=== PATIENT | female | born 1945 | race Caucasian/White ===

== ENCOUNTER 2017-07-17 11:52 | Inpatient (IN) | payer OTHER ==
--- NOTE | 2017-07-07 10:46 | HP ---
Admitting History and Physical - Primary Care Physician PCP: Jeff Moya - Admission Chief Complaint: Left breast cancer History of Present Illness: 72 year old postmenapausal female who was not undergoing routine mammogram screening was noted to have mass central to lateral aspect of left breast with nipple changes and skin dimpling by her primary physician 05/2017. She was sent for mammogram and US 05/2017 showing irregular mass in the central to lateral aspect of left breast with nipple retraction and mass measured 5.8 cm with a separate retroareolar right 2.2 cm mass. US showed highly suspicious densities in the left breast 2:00 2.5 cm and left 3:00 5 mm. there was a smoothly marginated right 1.3 cm retroareolar mass. She underwent bilateral US core biopsies. 05/2017. 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 Bilateral breast MRI showed mutifocal left breast cancer and suspicious right axillary node. She underwent right axillary node biopsy which was negative as well as metastatic work up. History Source: Patient - Past Medical History Cardiovascular: Yes: HTN, Hyperlipdemia Endocrine: Yes: Diabetes Mellitus - Smoking History Smoking history: Former smoker Have you smoked in the past 12 months: Yes - Alcohol/Substance Use Hx Alcohol Use: Yes (5 per week) Home Medications - Allergies Allergies/Adverse Reactions: Allergies Allergy/AdvReac Type Severity Reaction Status Date / Time No Known Allergies Allergy Verified 07/07/17 11:07 - Home Medications Home Medications (free text): simvastatin,triamterene,HCTHZ,amlodiine Family Disease History - Family Disease History Family History: Denies Physical Examination Constitutional: Yes: Well Nourished Breast(s): Yes: Other (B cup ptotic breast obvious flattening and dimpling lower lateral aspect left breast. irregular mass central to lateral aspect. fullness left axilla. Right reast smoothly mobile mass retroareolar region compatible with fibroadenoma. recent right axillary bx with resolving bruising) Problem List - Problems (1) Breast cancer, left breast Code(s): C50.912 - MALIGNANT NEOPLASM OF UNSPECIFIED SITE OF LEFT FEMALE BREAST Qualifiers: Breast location: overlapping sites of breast Patient sex: female Assessment/Plan Left total mastectomy with left sentenel node biopsy possible left axillary dissection reconstruction
[2017-07-07 12:03] VITALS: BMI 28.1
[2017-07-17] MEDS ORDERED: DEXAMETHASONE SOD PHOSPHATE/PF 10 MG/ML SDV ONE (12:55)
[2017-07-17] MEDS ORDERED: MIDAZOLAM HCL 2 MG/2 ML SINGLE DOSE VIAL ONE (12:56)
[2017-07-17] MEDS ORDERED: BUPIVACAINE HCL/PF 2.5 MG/ML - 30 ML VIAL IJ ONE (12:56)
[2017-07-17] MEDS ORDERED: PROPOFOL 20 ML ONE (13:40)
[2017-07-17] MEDS ORDERED: ROCURONIUM BROMIDE 50 MG/5 ML VIAL ONE (13:40)
[2017-07-17] MEDS ORDERED: fentaNYL CITRATE 250 MCG/5 ML VIAL ONE (13:40)
[2017-07-17] MEDS ORDERED: ceFAZolin SODIUM 1 GM VIAL ONE (13:55)
[2017-07-17] MEDS ORDERED: ISOSULFAN BLUE 10 MG/ML VIAL SQ ONE (13:57)
[2017-07-17] MEDS ORDERED: ONDANSETRON 4 MG/2 ML VIAL IVPUSH PRN ×2 (14:15→15:45)
[2017-07-17] MEDS ORDERED: LACTATED RINGERS SOLUTION 1,000 ML IV SCH (14:15)
[2017-07-17] MEDS ORDERED: oxyCODONE HCL 5 MG TABLET PO PRN ×2 (14:17)
[2017-07-17] MEDS ORDERED: ACETAMINOPHEN 325 MG TABLET (FP) PO PRN (15:45)
[2017-07-17] MEDS ORDERED: ZOLPIDEM TARTRATE 5 MG TABLET PO PRN (15:45)
--- NOTE | 2017-07-17 16:46 | SURG ---
Surgery Faculty Research Physician Note Faculty Research Physician: Abhishek Price PA-C Date of Service: 07/17/17 Diagnosis: Left breast cancer Procedure: Left breast reconstruction with tissue inside b2b sales and alloderm I was present for the entirety of the operative procedure. For further detail, please refer to operative report. Visit type - Case Type Case Type: Scheduled Admission
[2017-07-17] MEDS ORDERED: ONDANSETRON 4 MG/2 ML VIAL ONE (17:11)
[2017-07-17] MEDS ORDERED: ACETAMINOPHEN 325 MG TABLET (FP) ONE (17:44)
[2017-07-17] MEDS ORDERED: traMADol HCL 50 MG TABLET ONE (17:44)
[2017-07-17] MEDS: ACETAMINOPHEN 325 MG TABLET (FP) PO SCH ×2 (17:50→23:55)
[2017-07-17] MEDS: traMADol HCL 50 MG TABLET PO SCH ×2 (17:50→23:56)
[2017-07-17] MEDS: diazePAM 5 MG TABLET PO SCH (21:59)
[2017-07-17] MEDS: CEFAZOLIN 1 GM/D5W 1 GM/50 ML BAG IVPB SCH (21:59)
[2017-07-17] MEDS: METOPROLOL TARTRATE 25 MG TABLET (FP) PO SCH (21:59)
[2017-07-17] MEDS: ATORVASTATIN CA 20 MG TABLET (FP) PO SCH (21:59)
[2017-07-18] MEDS: CEFAZOLIN 1 GM/D5W 1 GM/50 ML BAG IVPB SCH ×4 (03:18→21:15)
[2017-07-18] MEDS: ACETAMINOPHEN 325 MG TABLET (FP) PO SCH ×3 (06:06→18:00)
[2017-07-18] MEDS: traMADol HCL 50 MG TABLET PO SCH ×3 (06:07→18:00)
--- NOTE | 2017-07-18 06:49 | OP ---
DATE OF OPERATION: 07/17/2017 PREOPERATIVE DIAGNOSIS: Multifocal left breast cancer. POSTOPERATIVE DIAGNOSIS: Multifocal left breast cancer. PROCEDURE PERFORMED: Left breast total mastectomy with left axillary sentinel lymph node biopsy and bead wrapper reconstruction. PRIMARY SURGEON: Gianna Zuniga M.D. OPERATIONS SPECIALISTS: DURGA Jarrell Primary surgeon for the bead wrapper reconstruction with AlloDerm is Dr. Gianna Miller, with his language assistant DURGA Weiss. ANESTHESIA: General laryngeal mask airway anesthesia. ESTIMATED BLOOD LOSS: About 120 mL. COMPLICATIONS: There were no complications. INDICATIONS: Briefly, the patient is a 72-year-old , postmenopausal white female of [place] descent. She has no family history of breast or ovarian cancer. The patient noticed a left breast mass with dimpling and nipple changes, and underwent mammogram, showing a suspicious left breast central breast cancer around the 2 o'clock region, measuring 2.5 cm, and a separate area around the 6 o'clock region. These were seen under ultrasound and ultrasound-guided core biopsy on May 30, 2017, showed multifocal infiltrating lobular cancer, which was classic type, ER-MO positive, HER-II/VARUN negative, with a Ki-67 of 25%. MRI showed multifocal left breast cancer. There were no suspicious left axillary nodes but there was a questionable node in the right axilla, which was biopsied and negative. She underwent a PET scan, performed by an outside physician, which was negative. The patient was advised on undergoing a left breast total mastectomy and sentinel lymph node biopsy, and was seen by Plastic Surgery preoperatively and bead wrapper reconstruction was recommended. DESCRIPTION OF PROCEDURE: The patient was brought in for the procedure on July 17, 2017. She first underwent lymphoscintigraphy at [facility] and was brought to the [facility] area. In the holding area, site verification was made and informed consent was obtained. The patient was brought into the operating room and laid on the OR table in the supine position. Venodynes were placed on the lower extremities prior to induction. She received 1 g of Ancef prior to incision. She underwent general laryngeal mask airway anesthesia. Then 3 mL of Lymphazurin blue was injected intradermally and rey-tumorly, around the left breast nipple-areolar complex, and massage was instituted. She first underwent the left sentinel lymph node biopsy. An incision was made just below the hair-bearing area of the left axilla and dissection was undertaken, and blue lymphatics were easily seen coursing to a blue hot lymph node. This had a 10-second gamma count of 6839. Frozen section of this node came back negative. Background count, after removal of this node, was 334. No other blue or hot nodes were found. Hemostasis was achieved. At this point the left mastectomy was performed through an incision encompassing the nipple-areolar complex in the lower pole of the left breast. The skin flaps were raised using the PEAK radiofrequency device, superiorly to the level of the clavicle, medially to the level of the sternum, laterally to the level of the latissimus and inferiorly below the level of the inframammary fold. The breast was taken down off the pectoralis major muscle from medial to laterally and completely removed intact. It was oriented with a long-lateral and short-superior suture. It was weighed to allow for appropriate cosmetic reconstruction. Specimen radiograph of the breast showed removal of the 2 clips in question. Hemostasis was achieved. The wound was copiously irrigated with warm sterile saline. A separate anterior margin was taken just on the superior flap with the suture margin at biopsy cavity side. This was marked as "left breast anterior margin." The wound was copiously irrigated. At this point Dr. Miller became the primary surgeon and performed an bead wrapper reconstruction with AlloDerm in the subpectoral location. This will be dictated separately by Plastic Surgery. All wounds will be closed separately by Plastic Surgery. The patient tolerated the procedure well to this point of the case. Estimated blood loss was about 80 mL, and she was hemodynamically stable, with some slight bouts of hypertension, which were controlled by Anesthesia during the case. The patient will be recovered postoperatively and will be admitted postoperatively for pain and wound management. Again, all sponge and needle counts were correct at the end of the case. It should be noted that we did use the SPY skin perfusion device and there was some slight decreased skin perfusion on the superior flap, which will be monitored closely. GIANNA ZUNIGA M.D. [id number]
[2017-07-18] MEDS: HEPARIN NA (PORCINE) 5,000 UNITS/ML 1ML VIAL SQ SCH ×2 (08:50→21:30)
[2017-07-18 08:52] LABS: HEMATOCRIT 37.7 % (32.4-45.2); HEMOGLOBIN 12.9 GM/dl (10.7-15.3); MCH 29.4 pg (25.7-33.7); MCHC 34.1 g/dl (32.0-36.0); MEAN CELL VOLUME 86.1 fl (80-96); MEAN PLT VOLUME 7.4 fl (7.5-11.1); PLATELET COUNT 348 K/MM3 (134-434); RBC 4.38 M/mm3 (3.60-5.2); RDW 13.6 % (11.6-15.6); WHITE BLOOD COUNT 13.9 K/mm3 (4.0-10.8)
--- NOTE | 2017-07-18 09:25 | PN ---
Progress Note, Physician Chief Complaint: Left breast cancer S/P left total mastectomy sentenel node biopsy service desk team lead reconstruction History of Present Illness: patient is OOB pain controlled eating no nausea and vomiting - Current Medication List Current Medications: Active Medications Acetaminophen (Tylenol -) 650 mg PO Q6HPO [facility] Last Admin: 07/18/17 06:06 Dose: 650 mg Acetaminophen (Tylenol -) 650 mg PO Q4H PRN PRN Reason: FEVER Amlodipine Besylate (Norvasc -) 10 mg PO DAILY [facility] Atorvastatin Calcium (Lipitor -) 20 mg PO HS [facility] Last Admin: 07/17/17 21:59 Dose: 20 mg Diazepam (Valium -) 2.5 mg PO BID [facility] Last Admin: 07/17/17 21:59 Dose: 2.5 mg Fentanyl (Sublimaze Injection -) 50 mcg IVPUSH [id number] PRN PRN Reason: PAIN-PACU ORDER X 4 DOSES ONLY Last Admin: 07/17/17 17:10 Dose: 25 mcg Heparin Sodium (Porcine) (Heparin -) 5,000 unit SQ BID@0800,2000 [facility] Last Admin: 07/18/17 08:50 Dose: 5,000 unit Lactated Ringer's (Lactated Ringers Solution) 1,000 mls @ 125 mls/hr IV ASDIR [facility] Cefazolin Sodium (Ancef 1 Gm Premixed Ivpb -) 1 gm in 50 mls @ 100 mls/hr IVPB Q6H-IV [facility] Stop: 07/24/17 20:59 Last Admin: 07/18/17 08:51 Dose: 100 mls/hr Dextrose/Sodium Chloride (D5-1/2ns -) 1,000 mls @ 100 mls/hr IV ASDIR [facility] Metoprolol Tartrate (Lopressor -) 25 mg PO BID [facility] Last Admin: 07/17/17 21:59 Dose: 25 mg Ondansetron HCl (Zofran Injection) 4 mg IVPUSH Q6H PRN PRN Reason: NAUSEA AND/OR VOMITING Last Admin: 07/17/17 17:12 Dose: 4 mg Ondansetron HCl (Zofran Injection) 4 mg IVPUSH Q6H PRN PRN Reason: NAUSEA AND/OR VOMITING Oxycodone HCl (Roxicodone -) 5 mg PO Q4H PRN PRN Reason: PAIN LEVEL 1-5 Oxycodone HCl (Roxicodone -) 10 mg PO Q4H PRN PRN Reason: PAIN LEVEL 6-10 Tramadol HCl (Ultram -) 50 mg PO Q6HPO [facility] Last Admin: 07/18/17 06:07 Dose: 50 mg Triamterene/HCTZ (Dyazide 25/37.5mg) 1 cap PO DAILY [facility] Zolpidem Tartrate (Ambien -) 5 mg PO HS PRN PRN Reason: Insomnia - Objective Vital Signs: Vital Signs Temperature 98.7 F 07/18/17 06:43 Pulse Rate 81 07/18/17 06:43 Respiratory Rate 18 07/18/17 06:43 Blood Pressure 131/60 07/18/17 06:43 O2 Sat by Pulse Oximetry (%) 94 L 07/18/17 06:43 Breast(s): Yes: Other (left skin flap viable echymosis around incision steristrips in place incision intact karan drain functioning) Labs: CBC, BMP 07/18/17 07:50 Problem List - Problems (1) Breast cancer, left breast Code(s): C50.912 - MALIGNANT NEOPLASM OF UNSPECIFIED SITE OF LEFT FEMALE BREAST Qualifiers: Breast location: overlapping sites of breast Patient sex: female Assessment/Plan continue spirometry continue pain medication protocol SCD IV antibiotics Lang gio discharge home tomorrow with VNS
[2017-07-18] MEDS: METOPROLOL TARTRATE 25 MG TABLET (FP) PO SCH ×2 (10:28→21:29)
[2017-07-18] MEDS: diazePAM 5 MG TABLET PO SCH ×3 (10:28→21:33)
[2017-07-18] MEDS: amLODIPine BESYLATE 10 MG TABLET (FP) PO SCH (10:28)
[2017-07-18] MEDS ORDERED: PT OWN MED DRAWER 7, Y5N ONE (10:33)
[2017-07-18] MEDS: TRIAMTERENE AND HCTZ - 37.5 MG/25 MG CAPSULE PO SCH (10:34)
[2017-07-18] MEDS: DEXTROSE 5%-0.45% SALINE 1,000 ML IV SCH ×2 (10:39→18:00)
--- NOTE | 2017-07-18 14:00 | DS ---
Physical Examination Vital Signs: Vital Signs Temperature 98.7 F 07/18/17 10:00 Pulse Rate 81 07/18/17 10:00 Respiratory Rate 18 07/18/17 10:00 Blood Pressure 131/60 07/18/17 10:00 O2 Sat by Pulse Oximetry (%) 94 L 07/18/17 09:00 Constitutional: Yes: No Distress Breast(s): Yes: Other (Left chest wall flap viable some echymosis near incision , incision intact steristrips in place karan drain functioning) Labs: CBC, BMP 07/18/17 07:50 Discharge Summary Reason For Visit: LEFT BREAST CA Condition: Good - Instructions Diet, Activity, Other Instructions: Post Operative Instructions - [facility] We hope your recovery will be uneventful. For those of you who have been given general anesthesia, there is a possibility you might have some lightheadedness and possibly nausea. It is important that each patient, especially those who have had general anesthesia, follow these instructions, please: 1. Do NOT operate a motor vehicle for 24 hours. 2. Do NOT drink any alcoholic beverages for 24 hours. 3. Do NOT take any sedatives, narcotics, or tranquilizers for 24 hours unless specifically ordered by your surgeon. 4. Do NOT undertake any strenuous exercise or outside activity for 24 hours unless specifically permitted by your surgeon. 5. Eat light foods that are easy to digest. If you have any problems with nausea and vomiting, lie down and rest. If it continues, call your surgeon. 6. Call your surgeon AT ONCE if you have problems with: a. Bleeding b. Urinating c. Excessive pain or drainage d. Numbness If any problems occur, call your physician first. If you cannot reach him/her, call the Ambulatory Surgery Unit at [phone], or the Emergency Room at . Follow up with Drs. Moya / Slime in 7 days. Medication: Vicodin E-S OR Percocet 1-2 tablets every 4-6 hrs as needed for 5-7 days. Wound Care: Keep wound dry and clean for 48 hours. You may remove the dressing after 48 hours and may shower. Keep steri-strips in place until follow-up appointment No heavy lifting or strenuous activities. BREAST SURGERY INSTRUCTIONS Naseem Moya M.D., PANFILO Moya M.D., FACS Nany Palencia M.D., FACS 1. Please call the office at to make a follow up appointment with your surgeon. This number can be also used for any urgent issues you may have. 2. Call us immediately if any of the following occur: *Bleeding from the incision or drain site (a small amount is normal) *Fever or chills *Redness and worsening tenderness around the surgical site *Drainage of pus or fluid from the incision or drain site 3. You may change the surgical dressing two (2) days after your surgery, and may shower then. If you have drains, you may shower after they have been removed, until then take a sponge bath. 4. It is normal for there to be some bruising and tenderness around the surgical site, and the breast may also be firm in this area. 5. Please wear a comfortable bra (sports or surgical bra) all day and all night until your first follow-up visit with your surgeon. 6. The pain medicine you have been prescribed may make you constipated; make sure you drink plenty of water. You may use an over the counter laxative if needed. 7. You may resume your normal diet after surgery, although you may want to avoid rich foods for the first twenty-four (24) hours after surgery. Alcoholic drinks should be avoided while taking the prescribed pain medicine. 8. You may resume normal activities as long as there is no discomfort, but do not do upper body exercises until after your follow-up appointment. Do not lift anything heavier than a large phone book. You may resume driving once you have stopped taking the prescribed pain medicine and feel comfortable doing arm movements. Wear bra, no shower, empty and record KARAN output twice daily Referrals: Jeff Moya MD [Staff Physician] - Feng Miller MD [Staff Physician] - Disposition: HOME - Home Medications Comprehensive Discharge Medication List: Ambulatory Orders Amlodipine Besylate 10 mg PO DAILY 07/07/17 Metoprolol Tartrate 25 mg PO BID 07/07/17 Simvastatin 40 mg PO HS 07/07/17 Triamterene/Hydrochlorothiazid [Triamterene-Hctz 37.5-25 mg Cp] 1 each PO DAILY 07/07/17 Acetaminophen [Tylenol -] 500 mg PO Q6H #100 tablet 07/18/17
[2017-07-18] MEDS: ATORVASTATIN CA 20 MG TABLET (FP) PO SCH (21:29)
[2017-07-19] MEDS: ACETAMINOPHEN 325 MG TABLET (FP) PO SCH ×2 (00:04→06:26)
[2017-07-19] MEDS: traMADol HCL 50 MG TABLET PO SCH ×2 (00:04→06:27)
[2017-07-19] MEDS: CEFAZOLIN 1 GM/D5W 1 GM/50 ML BAG IVPB SCH ×2 (03:15→09:45)
[2017-07-19 06:30] VITALS: PULSE 72; TEMP 98.8
[2017-07-19] MEDS: amLODIPine BESYLATE 10 MG TABLET (FP) PO SCH (09:38)
[2017-07-19] MEDS: diazePAM 5 MG TABLET PO SCH (09:39)
[2017-07-19] MEDS: METOPROLOL TARTRATE 25 MG TABLET (FP) PO SCH (09:39)
[2017-07-19] MEDS ORDERED: PT OWN MED DRAWER 7, Y5N ONE (09:41)
[2017-07-19] MEDS: TRIAMTERENE AND HCTZ - 37.5 MG/25 MG CAPSULE PO SCH (09:42)
[2017-07-19] MEDS: HEPARIN NA (PORCINE) 5,000 UNITS/ML 1ML VIAL SQ SCH (09:45)
[2017-07-19 10:20] VITALS: BP 139/78
--- NOTE | 2017-07-19 11:02 | DS ---
Physical Examination Vital Signs: Vital Signs Temperature 98.8 F 07/19/17 10:00 Pulse Rate 72 07/19/17 10:00 Respiratory Rate 19 07/19/17 10:00 Blood Pressure 139/78 07/19/17 10:00 O2 Sat by Pulse Oximetry (%) 95 07/19/17 09:00 Constitutional: Yes: Well Nourished, No Distress Wound/Incision: Yes: Clean/Dry (Ecchymosis center of incision. Skin flaps viable. No erythema or drainage. Charles drains with serosanguineous fluid. One drain suture loose and drain almost completely out so it was removed.) Neurological: Yes: Alert, Oriented Labs: CBC, BMP 07/18/17 07:50 Discharge Summary Reason For Visit: LEFT BREAST CA Hospital Course: Patient remained stable throughout hospital course Pain well controlled Condition: Good - Instructions Diet, Activity, Other Instructions: Post Operative Instructions - [facility] We hope your recovery will be uneventful. For those of you who have been given general anesthesia, there is a possibility you might have some lightheadedness and possibly nausea. It is important that each patient, especially those who have had general anesthesia, follow these instructions, please: 1. Do NOT operate a motor vehicle for 24 hours. 2. Do NOT drink any alcoholic beverages for 24 hours. 3. Do NOT take any sedatives, narcotics, or tranquilizers for 24 hours unless specifically ordered by your surgeon. 4. Do NOT undertake any strenuous exercise or outside activity for 24 hours unless specifically permitted by your surgeon. 5. Eat light foods that are easy to digest. If you have any problems with nausea and vomiting, lie down and rest. If it continues, call your surgeon. 6. Call your surgeon AT ONCE if you have problems with: a. Bleeding b. Urinating c. Excessive pain or drainage d. Numbness If any problems occur, call your physician first. If you cannot reach him/her, call the Ambulatory Surgery Unit at [phone], or the Emergency Room at . Follow up with Drs. Moya / Slime in 7 days. Medication: Vicodin E-S OR Percocet 1-2 tablets every 4-6 hrs as needed for 5-7 days. Wound Care: Keep wound dry and clean for 48 hours. You may remove the dressing after 48 hours and may shower. Keep steri-strips in place until follow-up appointment No heavy lifting or strenuous activities. BREAST SURGERY INSTRUCTIONS Naseem Moya M.D., PANFILO Moya M.D., PANFILO Palencia M.D., FACS 1. Please call the office at to make a follow up appointment with your surgeon. This number can be also used for any urgent issues you may have. 2. Call us immediately if any of the following occur: *Bleeding from the incision or drain site (a small amount is normal) *Fever or chills *Redness and worsening tenderness around the surgical site *Drainage of pus or fluid from the incision or drain site 3. You may change the surgical dressing two (2) days after your surgery, and may shower then. If you have drains, you may shower after they have been removed, until then take a sponge bath. 4. It is normal for there to be some bruising and tenderness around the surgical site, and the breast may also be firm in this area. 5. Please wear a comfortable bra (sports or surgical bra) all day and all night until your first follow-up visit with your surgeon. 6. The pain medicine you have been prescribed may make you constipated; make sure you drink plenty of water. You may use an over the counter laxative if needed. 7. You may resume your normal diet after surgery, although you may want to avoid rich foods for the first twenty-four (24) hours after surgery. Alcoholic drinks should be avoided while taking the prescribed pain medicine. 8. You may resume normal activities as long as there is no discomfort, but do not do upper body exercises until after your follow-up appointment. Do not lift anything heavier than a large phone book. You may resume driving once you have stopped taking the prescribed pain medicine and feel comfortable doing arm movements. Wear bra, no shower, empty and record LEIGH output twice daily Referrals: Jeff Moya MD [Staff Physician] - Feng Miller MD [Staff Physician] - Disposition: HOME - Home Medications Comprehensive Discharge Medication List: Ambulatory Orders Amlodipine Besylate 10 mg PO DAILY 07/07/17 Metoprolol Tartrate 25 mg PO BID 07/07/17 Simvastatin 40 mg PO HS 07/07/17 Triamterene/Hydrochlorothiazid [Triamterene-Hctz 37.5-25 mg Cp] 1 each PO DAILY 07/07/17 Acetaminophen [Tylenol -] 500 mg PO Q6H #100 tablet 07/18/17
--- NOTE | 2017-07-19 12:12 | OP ---
DATE OF OPERATION: 07/17/2017 SURGEON: Gianna Miller MD OCCUPATIONAL THERAPIST REHAB MANAGER SURGEON: Abhishek Price PA-C PREOPERATIVE DIAGNOSIS: Left chest wall acquired deformity status post modified radical mastectomy by Dr. Gianna Moya. This is a combined dictation with Dr. Gianna Moya. He will dictate his portion under a separate cover. OPERATIVE PROCEDURE: 1. Immediate left breast reconstruction utilizing insertion of tissue licsw and acellular dermal matrix. 2. Intraoperative Spy angiogram, left chest wall, x2. 3. Interpretation of angiogram, left chest wall. POSTOPERATIVE DIAGNOSIS: Left chest wall acquired deformity status post modified radical mastectomy by Dr. Gianna Moya. This is a combined dictation with Dr. Gianna Moya. He will dictate his portion under a separate cover. OPERATIVE PROCEDURE INDICATIONS: This patient is a woman who was brought to the operating room by Dr. Gianna Myoa for a left breast large carcinoma in the retroareolar area which required large block resection of the lower pole of the breast including skin and subcutaneous tissue as well as the nipple areolar complex. Patient also underwent a left sentinel lymph node biopsy by Dr. Moya. I performed the reconstructive technique as described above. OPERATIVE PROCEDURE IN DETAIL: The patient was taken to the operating room by Dr. Moya. She was placed supine on the operating room table. Both arms were extended and padded. Venodyne boots were placed. The entire chest wall was prepped with ChloraPrep solution over its entire extent. At this point, Dr. Moya performed the large extirpation of the lower pole of the breast including nipple areolar complex and large tumor with sentinel lymph node biopsy. Upon completion of the mastectomy, the wounds were copiously irrigated with triple antibiotic solution, and Spy intraoperative angiogram was carried out. The angiogram showed decreased blood flow to the lower pole of the skin and areas of previous lymphazurin injection, but improving slowly over time. At this point, I began my procedure by elevating the pectoralis major muscle at its lateral extent, elevating the pectoralis major muscle medially to the sternal fibers, superiorly to the 2nd rib, and laterally to the anterior axillary line. The lower portion of the origin of the muscle was disinserted, elevated in the usual fashion for reconstruction. At this point, an Alloderm Select Tissue Matrix RTU Contour Medium Perforated Sheet was brought into the field after being washed and sterilized in the usual fashion. The Alloderm was sutured to the pectoralis major muscle using 3-0 Vicryl sutures in a running fashion superiorly along the muscle and then down laterally along the lateral mammary fold. A 2nd suture was begun on the medial side running the suture to the midline, and then a tissue licsw was chosen because of the potential for skin tightened skin viability and possible radiation and chemotherapy. A [employer].lae Style 133 SX-14-T Tissue Paid Search Marketing Strategist of 500 mL was placed into the pocket. The Alloderm material was sutured then down to the inframammary fold covering the entire tissue licsw, and the 2nd Spy Intraoperative Angiogram was performed. Still, a decreased flow of tissue and skin perfusion was seen on the Spy Intraoperative Angiogram, and the decision at this point was made not to fill the licsw at all and put no pressure onto the skin flaps themselves. The skin and subcutaneous tissue were then advanced and closed upon themselves using multiple layers of sutures using 2-0 PDS sutures on the deep tissue, 3-0 PDS in a deep dermal fashion, and 4-0 Biosyn in a subcuticular fashion. Light fluffy dressings were placed over the wounds. Dermabond was placed on the skin with Steri-Strips. A light bra was placed for the patients comfort. She was awakened, extubated, and transferred to the recovery room in satisfactory condition with a Lang Hugger for warming the skin and subcutaneous tissues. She tolerated the procedure well. GIANNA MILLER M.D. [id number] MTDD
--- NOTE | 2017-07-23 11:57 | PATH ---
Surgical Pathology Report Patient Name: STERLING CESAR Med. Rec. #: [id number] /Age/Gender: 1945 (Age: 72) / F Account: [id number] Location: [facility] MED-SURG Taken: 07/17/2017 Received: 07/17/2017 Reported: 07/23/2017 Physicians: Jeff Moya M.D. Specimen(s) Received A: LEFT BREAST SENTINEL NODE #1 (FS) B: LEFT BREAST, MASTECTOMY C: LEFT BREAST ANTERIOR MARGIN Clinical History Left retroareolar invasive lobular cancer-multifocal Intraoperative Consult Diagnosis Left sentinel node #1, frozen section: One negative lymph node (0/1). Joo Handy M.D., 07/17/17 Final Diagnosis A. LYMPH NODE, LEFT BREAST SENTINEL #1, EXCISION (FS): MICROMETASTATIC CARCINOMA INVOLVING ONE OF ONE LYMPH NODE (1/1), IDENTIFIED PRIMARILY WITH CYTOKERATIN (AE 1/3) IMMUNOSTAIN. THE LARGEST CONTIGUOUS FOCUS OF METASTATIC CARCINOMA MEASURES 0.8 MM IN GREATEST DIMENSION (MICROMETASTASIS). NO EXTRANODAL EXTENSION IS IDENTIFIED. (SEE NOTE) Note: The foci of micrometastasis are not identified on original frozen section slides and are highlighted with cytokeratin immunostain (AE1/3; performed at [facility]) on permanent sections. The carcinoma is negative for E-Cadherin (performed at [facility]), which supports lobular phenotype. B. BREAST, LEFT, TOTAL MASTECTOMY: MULTIFOCAL AND MULTICENTRIC INVASIVE LOBULAR CARCINOMA, CLASSICAL AND TRABECULAR TYPE (NUCLEAR GRADE 2). (SEE NOTE) THE LARGEST FOCUS OF INVASIVE CARCINOMA INVOLVES THE RETROAREOLAR REGION AND MEASURES 3.8 CM IN GREATEST DIMENSION (GROSS MEASUREMENT). ADDITIONALLY, THERE ARE SEVERAL SMALLER FOCI OF INVASIVE LOBULAR CARCINOMA (NINE FOCI, AT LEAST) RANGING FROM 1 7 MM IN GREATEST DIMENSION, SCATTERED THROUGHOUT THE FOUR QUADRANTS. SURGICAL MARGINS ARE UNINVOLVED BY CARCINOMA; INVASIVE CARCINOMA IS AT 2 MM FROM THE CLOSEST ANTERIOR SOFT TISSUE MARGIN. INVASIVE CARCINOMA INVOLVES DERMIS OF SKIN AND AREOLA. NO LYMPHOVASCULAR INVASION IS IDENTIFIED. REMAINING BREAST TISSUE SHOWS PROLIFERATIVE FIBROCYSTIC CHANGES, INTRADUCTAL PAPILLOMAS, SMALL RADIAL SCARS, SCLEROSING ADENOSIS AND FIBROADENOMA. ONE BENIGN INTRAMAMMARY LYMPH NODE ON H&E STAINED SECTION AND CYTOKERATIN (AE1/3) IMMUNOSTAIN (0/1). PATHOLOGIC STAGE (pTNM): pT2(m) pN1mi. SEE ALSO INVASIVE CARCINOMA CASE SUMMARY BELOW. Note : The carcinoma is negative for E-Cadherin (performed at [facility]), which supports lobular phenotype. C. BREAST, LEFT, ANTERIOR MARGIN, EXCISION: BENIGN BREAST TISSUE. Comments Breast Invasive Carcinoma: Surgical Pathology Case Summary (Based on AJCC TNM 8 th edition) Procedure _X_ Total mastectomy (including nipple-sparing and skin-sparing mastectomy) Specimen Laterality _X_ Left Tumor Size _X_ Greatest dimension of largest invasive focus >1 mm (specify exact measurement) (millimeters): 38 mm Histologic Type _X_ Invasive lobular carcinoma Histologic Grade ([place] Histologic Score) Glandular (Acinar)/Tubular Differentiation _X_ Score 3 (<10% of tumor area forming glandular/tubular structures) Nuclear Pleomorphism _X_ Score 2 Mitotic Rate _X_ Score 2 Overall Grade _X_ Grade 2 (scores of 6 or 7) Tumor Focality _X_ Multiple foci of invasive carcinoma Number of foci: at least 10 Sizes of individual foci: 1 mm 38 mm Ductal Carcinoma In Situ (DCIS) _X_ No DCIS in specimen Tumor Extension (required only if the structures are present and involved) Skin _X_ Invasive carcinoma directly invades into the dermis or epidermis without skin ulceration (this does not change the T stage) Margins Invasive Carcinoma Margins _X_ Uninvolved by invasive carcinoma Distance from closest margin (millimeters): 2 mm Closest margin: anterior (final anterior margin C is negative for carcinoma) Regional Lymph Nodes _2_ No lymph nodes submitted or found Number of Lymph Nodes with Macrometastases (>2 mm): 0 Number of Lymph Nodes with Micrometastases (>0.2 mm to 2 mm and/or >200 cells): 1 Number of Lymph Nodes with Isolated Tumor Cells (=0.2 mm and =200 cells): 0 Size of Largest Metastatic Deposit (millimeters): 0.8 mm Extranodal Extension: _X_ Not identified Number of Lymph Nodes Examined:2 Number of [place] Nodes Examined : 1 Treatment Effect _X_ No known presurgical therapy Lymphovascular Invasion _X_ Not identified Pathologic Stage Classification (pTNM, AJCC 8th Edition) TNM Descriptors _X_ m (multiple foci of invasive carcinoma) Primary Tumor (Invasive Carcinoma) (pT) _X_ pT2: Tumor >20 mm but =50 mm in greatest dimension Regional Lymph Nodes (pN) Modifier (required only if applicable) _X_ (sn): [place] node(s) evaluated. If 6 or more nodes (sentinel or nonsentinel) are removed, this modifier should not be used. Category (pN) _X_ pN1mi: Micrometastases (approximately 200 cells, larger than 0.2 mm, but none larger than 2.0 mm Biomarker Studies Results of ER and WA studies performed on this specimen (block B6) at [facility] are as follows: ER (clone [id number] mouse monoclonal antibody by [employer]): 100 % nuclear staining with strong intensity (Positive). WA (clone16 mouse monoclonal antibody by [employer]):100 % nuclear staining with strong intensity (Positive). Results of Her2 (IHC) & Ki-67 studies performed on this specimen (block B6) at [place], [place] ([id number]) are as follows: Her2 IHC (EP3 from [employer], formerly known as ER1921D, using Osullivan Polymer Refine detection kit): 0 (Negative). Ki67: ~30% (Intermediate proliferative index). Positive and negative controls (internal if applicable) show appropriate results. Formalin fixation and cold ischemic times are within current ASCO/CAP recommendations for ER, WA and Her2 testing. Electronically Signed Michelle Handy M.D. Gross Description A. Received fresh for frozen section, labeled left breast sentinel node #1," is a 1.5 x 1.0 x 0.4 cm lymph node with attached fatty tissue. The lymph node is bisected and frozen section is performed on the lymph node. The frozen section residue is entirely submitted in one cassette. B. Received in formalin, labeled "left breast," is a 585 gram, 21.0 x 17.0 x 4.5 cm. left mastectomy specimen with a short suture marking the superior aspect and a long suture marking the lateral aspect of the specimen, per the surgeon. The anterior surface displays a 13.5 x 7.5 cm moran, irregular portion of skin with a 1.5 cm in diameter nipple. There is a 0.9 x 0.6 cm firm nodule abutting the medial nipple/ areola. The deep margin is inked black and the anterior soft tissue margin is inked blue. The specimen is serially sectioned from medial to lateral. Sectioning reveals a 3.8 x 3.5 x 2.0 cm ill-defined firm mass in the retroareolar region, focally abutting the skin and corresponding to the nodule abutting the nipple. The mass is at 2 cm from the deep margin. There is an additional 0.7 x 0.6 x 0.5 cm firm mass, 1.5 cm inferior to the retroareolar mass in the lower inner quadrant (LIQ). The second mass is 1.1 cm from the skin. The remaining breast parenchyma displays abundant dense, white, focally firm fibrous tissue. There is a 1.1 x 0.8 x 0.6 cm firm, palpable lymph node at the lateral aspect of the specimen. Director Mba sections are submitted in 19 cassettes as follows: 1-serially sectioned nipple; 2-subareolar shave; 3-4-one full-face bisected section of retroareolar mass; 5-retroareolar mass with corresponding skin nodule; 6-additional mechanical service representative retroareolar mass; 2-9-dtoyfliq submitted bisected second mass with skin; 9-upper outer quadrant; 10-11-lower outer quadrant; 12-14-upper inner quadrant; 15-lower inner quadrant; 16-anterior soft tissue margin; 17-uninvolved skin; 18-deep margin; 19-one bisected lymph node. Time to formalin fixation: 29 minutes Total formalin fixation time: Approximately 26 hours. C. Received in formalin labeled "left breast anterior margin," is a 4.5 x 4.0 x 1.0 cm portion of fibroadipose tissue with a suture marking the biopsy cavity side, per the surgeon. The new margin is inked blue and the specimen is serially sectioned. The specimen is entirely and sequentially submitted in 6 cassettes. 07/18/2017 saudi07/18/2017
== END 2017-07-19 12:00 | disposition home or self-care (01) | DRG 581 ==
LOC: FM/S 11:52
PROVIDERS: ADMIT Surgery Surgical Oncology; ATTEND Surgery Surgical Oncology
PROC: 0HHU0NZ Insertion of Tissue Expander into Left Breast, Open Approach (ICD-10-PCS; 2017-07-17)
PROC: 4A1GXSH Monitoring of Skin and Breast Vascular Perfusion using Indocyanine Green Dye, External Approach (ICD-10-PCS; 2017-07-17)
PROC: 0HTU0ZZ Resection of Left Breast, Open Approach (ICD-10-PCS; principal; 2017-07-17 14:11)
PROC: 07B60ZX Excision of Left Axillary Lymphatic, Open Approach, Diagnostic (ICD-10-PCS; 2017-07-17 14:11)
PROC: 0HUU0JZ Supplement Left Breast with Synthetic Substitute, Open Approach (ICD-10-PCS; 2017-07-17 14:11)
DX: C50.912 Malignant neoplasm of unspecified site of left female breast (principal); Z17.0 Estrogen receptor positive status [ER+]; M95.4 Acquired deformity of chest and rib; I10 Essential (primary) hypertension; E78.5 Hyperlipidemia, unspecified; E11.9 Type 2 diabetes mellitus without complications; Z87.891 Personal history of nicotine dependence
CPT/HCPCS: 36415; 78195-TC; 85027; 88307-TC; 88331-TC; 88341-TC; 94010; 94760; A9541; J1644

== ENCOUNTER 2017-08-07 11:31 | Day surgery (SDC) | payer OTHER ==
[2017-08-06 16:53] VITALS: BMI 27.4
[2017-08-07] MEDS ORDERED: LIDOCAINE HCL/PF 2% SDV 5ML VIAL ONE (11:45)
[2017-08-07] MEDS ORDERED: SUCCINYLCHOLINE CHLORIDE 200 MG/10 ML VIAL ONE (11:45)
[2017-08-07] MEDS ORDERED: KETOROLAC TROMETHAMINE 30 MG/1 ML VIAL ONE (11:49)
[2017-08-07] MEDS ORDERED: ONDANSETRON 4 MG/2 ML VIAL ONE (11:49)
[2017-08-07] MEDS ORDERED: oxyCODONE HCL 5 MG TABLET PO PRN ×2 (12:46)
[2017-08-07] MEDS ORDERED: ONDANSETRON 4 MG/2 ML VIAL IVPUSH PRN (12:46)
[2017-08-07] MEDS ORDERED: LACTATED RINGERS SOLUTION 1,000 ML IV SCH (13:00)
[2017-08-07] MEDS ORDERED: ROCURONIUM BROMIDE 50 MG/5 ML VIAL ONE (13:00)
[2017-08-07] MEDS ORDERED: MIDAZOLAM HCL 2 MG/2 ML SINGLE DOSE VIAL ONE (13:01)
[2017-08-07] MEDS ORDERED: ceFAZolin SODIUM 1 GM VIAL ONE (14:34)
[2017-08-07] MEDS ORDERED: SODIUM CHLORIDE 0.9% P/F 10 ML VIAL IJ ONE (14:34)
[2017-08-07] MEDS ORDERED: LIDOCAINE 1%/EPI 1:100000 (20 ML MULTI DOSE VIAL) ONE (14:36)
[2017-08-07] MEDS ORDERED: ePHEDrine SULFATE 50 MG/1 ML AMPULE ONE (14:41)
[2017-08-07] MEDS ORDERED: NEOSTIGMINE METHYLSULFATE 0.5 MG/ML - 10 ML MDV ONE (14:56)
[2017-08-07] MEDS ORDERED: GLYCOPYRROLATE 0.2 MG/1 ML VIAL ONE (14:56)
--- NOTE | 2017-08-07 15:25 | OP ---
Operative Note - Note: Operative Date: 08/07/17 Pre-Operative Diagnosis: necrotic left breast tissue Operation: debridement of necrotic tissue left breast post mastectomy, removal of tissue data center project manager. advancement and flap closure. Post-Operative Diagnosis: Same as Pre-op Surgeon: Feng Miller Lead Systems Developer: Micehlle Girard Anesthesiologist/SLIP SEAT COVERER: Tarun Alvarez Anesthesia: General Specimens Removed: tissue data center project manager Estimated Blood Loss (mls): 30 Fluid Volume Replaced (mls): 700 Operative Report Dictated: Yes
--- NOTE | 2017-08-07 15:27 | SURG ---
Surgery Pin Cleaner Note Pin Cleaner: Michelle Girard PA-C Date of Service: 08/07/17 Diagnosis: necrotic left breast tissue Procedure: debridement of necrotic tissue left breast post mastectomy, removal of tissue evs manager. advancement and flap closure. I was present for the entirety of the operative procedure. For further detail, please refer to operative report. Visit type - Case Type Case Type: Scheduled - Emergency Emergency Visit: No - New patient This patient is new to me today: Yes Date on this admission: 08/07/17
[2017-08-07 15:36] VITALS: TEMP 98.1
[2017-08-07 17:22] VITALS: BP 102/70; PULSE 84
--- NOTE | 2017-08-10 19:10 | OP ---
DATE OF OPERATION: 08/07/2017 SURGEON: Gianna Miller MD LEVELING MACHINE OPERATOR SURGEON: DURGA Whitmore PREOPERATIVE DIAGNOSES: 1. Necrotic skin and subcutaneous tissue, status post left breast mastectomy. 2. Impending loss of left breast tissue linter saw sharpener. POSTOPERATIVE DIAGNOSES: 1. Necrotic skin and subcutaneous tissue, status post left breast mastectomy. 2. Impending loss of left breast tissue linter saw sharpener. OPERATIVE PROCEDURE: 1. Debridement of left breast necrotic skin and subcutaneous tissue. 2. Removal left breast tissue linter saw sharpener and acellular dermal matrix. 3. History of rearrangement and reconstruction with other technique. OPERATIVE INDICATION: Patient is a 72-year-old white female who underwent left breast mastectomy for a significant breast cancer [address] Gianna Moya. She now presented to his office and to [facility] with a large necrotic area in the lower pole of the breast from previous injection of Lymphazurin blue tissue and poor tissue perfusion. The first operation, the patient had a tissue linter saw sharpener inserted with acellular dermal reconstruction without any fill of fluid into the tissue linter saw sharpener. The patient then presented to the office with swelling of the left breast, no evidence of infection, but a large necrotic area of skin and subcutaneous tissue at the mastectomy incision at the inframammary fold. It was decided by both Dr. Moya and myself that the patient needed to return to the OR for debridement and possible salvage of the implant. The risks and benefits of surgical versus nonsurgical alternatives as well as material complications were described to the patient on multiple occasions preoperatively by both of us, and again today in the holding area with both of us present, Dr. Moya and myself. OPERATIVE PROCEDURE IN DETAIL: The patient was taken to the operating room and after induction of general anesthesia in supine position, the area of necrotic tissue, which had measured approximately 18 x 10 cm in its greatest dimensions, was seen at the lower pole of the breast with full-thickness necrosis, black eschar, and evidence of tissue damage. After induction of general anesthesia, and prepping and draping of the breast in the usual fashion, my attention was turned to the lower pole of the breast, which were outlined in the preoperative area, incised using a number 10 scalpel around the dark black area in the subcutaneous tissue and skin, excision a large block of skin and subcutaneous tissue down to the underlying AlloDerm which had been previously placed. Upon opening the space below the skin, a large amount of serosanguineous fluid was seen outside the AlloDerm pocket and then extruding through the perforations of the AlloDerm which had been placed. Also a large amount of 200 to 300 mL of dark fluid was noted. There was no evidence of infection but the decision was made with both myself and Dr. Moya, who was in the room, that the implant should be removed and reconstruction delayed for another time because of the need for further treatment with chemotherapy and possible radiation therapy. At this point, the AlloDerm was removed by incising it. The tissue linter saw sharpener was also removed. Both were sent for pathologic diagnosis, as was the skin and subcutaneous tissue. Once this was carried out, copious irrigation with 2 L of saline was carried out over the entire pocket. Hemostasis was meticulously obtained. A Kulwant-Cheung drain was brought out through a separate stab wound, and the skin and subcutaneous tissue were now rearranged. Dissection was carried down inferiorly onto the abdominal wall, elevating the lower portion of the inframammary fold and subcutaneous tissues into this new anatomic position, advancing and closing the tissues with undermining and advancement flaps. These flaps were then sutured together using 2-0 Vicryl sutures in interrupted fashion. The skin and subcutaneous tissues were approximated in multiple layers using 2-0 Vicryl sutures in the deepest tissues, 3-0 PDS in a deep dermal fashion, and interrupted and running 3-0 nylon sutures on the skin to reduce the tension on the skin itself because of the large loss of skin and subcutaneous tissue. The patient tolerated the procedure well. She was dressed thoroughly with Xeroform, fluff dressings, and a Surgi-Bra. She was awakened, extubated, and transferred to the recovery room in satisfactory condition. GIANNA MILLER M.D. [id number]
--- NOTE | 2017-08-11 16:12 | PATH ---
Surgical Pathology Report Patient Name: STERLING CESAR [facility]. Rec. #: [id number] /Age/Gender: 1945 (Age: 72) / F Account: [id number] Location: [facility] Taken: 08/07/2017 Received: 08/07/2017 Reported: 08/11/2017 Physicians: Feng Miller Specimen(s) Received A: LEFT BREAST TISSUE # 1 B: BREAST CHIEF CONTROLLER CENTER C: BREAST TISSUE #2 Clinical History History of left breast cancer Final Diagnosis A. BREAST TISSUE #1, LEFT, EXCISION: SKIN AND UNDERLYING SUBCUTANEOUS TISSUE WITH ACUTE AND CHRONIC INFLAMMATION AND ULCERATION. B. BREAST CHIEF CONTROLLER CENTER, LEFT, REMOVAL: BREAST CHIEF CONTROLLER CENTER. MACROSCOPIC DIAGNOSIS. C. BREAST TISSUE #2, LEFT, EXCISION: FIBROADIPOSE TISSUE WITH CHRONIC INFLAMMATION AND GIANT CELL REACTION CONSISTENT WITH FIBROUS CAPSULE. Electronically Signed Roshni Munson M.D. Gross Description A. Received in formalin labeled "left breast tissue #1," is a 16.0 x 4.0 cm moran, irregular, unoriented portion of skin excised to a depth of 1.6 cm. The epidermal surface displays a diffuse black-spaulding, necrotic lesion. A underwriting service representative section is submitted in one cassette. B. Received fresh labeled "left breast service desk director," is a 15.0 x 11.5 x 4.0 cm moran foreign body, consistent with a breast tissue service desk director. No soft tissue is present. No sections are submitted, gross only. C. Received in formalin labeled "left breast tissue #2," are 2 moran, unoriented portions of possible fibrous capsule measuring 13.0 x 2.6 x 0.5 cm and 15.5 x 4.3 x 0.2 cm. Manufacturing Lab Technician sections are submitted in one cassette. DL/08/08/2017 saudi08/08/2017
== END 2017-08-07 17:10 | disposition home or self-care (01) ==
LOC: FASU 11:31
PROVIDERS: ATTEND Plastic Surgery
PROC: 0HPU0NZ Removal of Tissue Expander from Left Breast, Open Approach (ICD-10-PCS; 2017-08-07)
PROC: 0HRU07Z Replacement of Left Breast with Autologous Tissue Substitute, Open Approach (ICD-10-PCS; 2017-08-07)
PROC: 0HBU0ZZ Excision of Left Breast, Open Approach (ICD-10-PCS; principal; 2017-08-07 14:35)
DX: L76.82 Other postprocedural complications of skin and subcutaneous tissue (principal); T85.49XA Other mechanical complication of breast prosthesis and implant, initial encounter; Y83.8 Other surgical procedures as the cause of abnormal reaction of the patient, or of later complication, without mention of misadventure at the time of the procedure; C50.912 Malignant neoplasm of unspecified site of left female breast; Z17.0 Estrogen receptor positive status [ER+]; Z90.12 Acquired absence of left breast and nipple
CPT/HCPCS: 88300-TC; 88304-TC; 94760

== ENCOUNTER 2018-03-05 08:43 | Day surgery (SDC) | payer OTHER ==
[2018-02-27 09:23] VITALS: BMI 31.8
[2018-03-05] MEDS ORDERED: ROCURONIUM BROMIDE 50 MG/5 ML VIAL ONE (09:32)
[2018-03-05] MEDS ORDERED: fentaNYL CITRATE 250 MCG/5 ML VIAL ONE (09:32)
[2018-03-05] MEDS ORDERED: ONDANSETRON 4 MG/2 ML VIAL ONE (09:32)
[2018-03-05] MEDS ORDERED: DEXAMETHASONE SOD PHOSPHATE 4 MG/1 ML VIAL ONE (09:32)
[2018-03-05] MEDS ORDERED: PROPOFOL 20 ML ONE ×2 (09:32)
[2018-03-05] MEDS ORDERED: MIDAZOLAM HCL 2 MG/2 ML SINGLE DOSE VIAL ONE (09:32)
[2018-03-05] MEDS ORDERED: ceFAZolin SODIUM 1 GM VIAL ONE (09:33)
[2018-03-05] MEDS ORDERED: LIDOCAINE 1%/EPI 1:100000 (20 ML MULTI DOSE VIAL) ONE ×2 (09:43→10:23)
[2018-03-05] MEDS ORDERED: BUPIVACAINE HCL/PF 0.5% (5MG/ML) 10 ML VIAL ONE (09:43)
[2018-03-05] MEDS ORDERED: GENTAMICIN SO4 80 MG/2 ML VIAL ONE (09:43)
[2018-03-05] MEDS ORDERED: LIDOCAINE 1%/EPI 1:100000 (20 ML MULTI DOSE VIAL) IJ ONE (10:10)
[2018-03-05] MEDS ORDERED: ePHEDrine SULFATE 50 MG/1 ML AMPULE ONE (10:19)
[2018-03-05] MEDS ORDERED: CLINDAMYCIN PHOSPHATE 600 MG/4 ML VIAL ONE (10:25)
[2018-03-05] MEDS ORDERED: NEOSTIGMINE METHYLSULFATE 0.5 MG/ML - 10 ML MDV ONE (11:12)
[2018-03-05] MEDS ORDERED: GLYCOPYRROLATE 0.2 MG/1 ML VIAL ONE (11:17)
--- NOTE | 2018-03-05 11:26 | OP ---
Operative Note - Note: Operative Date: 03/05/18 Pre-Operative Diagnosis: Left Chest wall deformity post mastectomy Operation: Delayed left breast reconstruction with insertion of Tissue school teacher Implants: Aeroform medium Post-Operative Diagnosis: Same as Pre-op Surgeon: Feng Miller Anesthesia: General Estimated Blood Loss (mls): 10 Operative Report Dictated: Yes
[2018-03-05 12:00] VITALS: TEMP 97.8
[2018-03-05] MEDS ORDERED: ONDANSETRON 4 MG/2 ML VIAL IVPUSH PRN (12:00)
[2018-03-05] MEDS ORDERED: LACTATED RINGERS SOLUTION 1,000 ML IV SCH (12:00)
[2018-03-05] MEDS ORDERED: oxyCODONE HCL 5 MG TABLET PO PRN (12:00)
[2018-03-05 14:20] VITALS: PULSE 78
[2018-03-05 14:26] VITALS: BP 123/66
--- NOTE | 2018-03-08 09:23 | OP ---
DATE OF OPERATION: 03/05/2018 SURGEON: Gianna Miller MD PREOPERATIVE DIAGNOSES: 1. Left acquired chest wall deformity, status post left modified radical mastectomy. 2. Personal history of breast carcinoma. 3. Asymmetry of reconstructed chest wall. POSTOPERATIVE DIAGNOSES: 1. Left acquired chest wall deformity, status post left modified radical mastectomy. 2. Personal history of breast carcinoma. 3. Asymmetry of reconstructed chest wall. OPERATIVE PROCEDURE: Delayed reconstruction of left breast [place], [id number]. OPERATIVE INDICATION: The patient is a 72-year-old female who underwent left breast mastectomy and subsequently had skin breakdown and surgery to remove the device prior to this procedure. She is now subsequently healed from her infection and now returns for delayed reconstruction. The risks and benefits of surgical versus nonsurgical alternatives as well as material complications of the procedure were described to the patient on multiple occasions preoperatively. She agreed to the planned procedure and understood a secondary procedure for operation reconstruction would be required. The patient elected to have an AeroForm dosage controller implant placed as an air turner in. All questions were asked and answered. A full discussion was disclosed of the risks and benefits, including the possibility of infection again, as she had a previous infection prior. OPERATIVE PROCEDURE IN DETAIL: The patient was taken to the operating room and, after induction of general anesthesia in the supine position, both arms were extended and padded, Venodyne boots were placed. After prepping and draping in the usual fashion for a left breast surgery, attention was turned to the mastectomy scar. A planned incision was made in the lateral portion of the scar, which extended across the lower portion of the breast at the inframammary fold. One percent local lidocaine anesthesia with 1:100,000 epinephrine was injected for hemostasis and topical anesthesia at this point and, after allowing topical anesthesia and hemostasis, an incision was made down through the skin, into the subcutaneous tissue of the left chest wall. Dissection was then carried down to the underlying deep tissues of the chest wall using optical magnification of 2.5 power. At this point, the deep space of the chest wall over the rib margin into the subpectoral position was encountered. Dissection was then carried out superiorly along the rib margin, below the pectoralis muscle, up to the 2nd rib superiorly, medially to the sternal fibers, laterally to the anterior axillary line, and down to the inframammary fold. A large amount of scar tissue was seen at this point and this was all cauterized using electrocautery and hemostasis meticulously obtained throughout. At this point, an AeroForm tissue turner in was chosen. This was a medium-size device. The air was removed from the turner in and then placed in a sterile fashion into the deep tissues below the subpectoral space and into the pocket. Two places in the lower pole of the turner in were tacked into position using multiple 3-0 chromic sutures down to the chest wall to prevent migration. Copious irrigation with triple-antibiotic solution was carried out. The wound was copiously irrigated. Hemostasis again confirmed and then the wound was closed in layers using 2-0 Vicryl suture in the deepest tissue of the pectoralis muscle down to the chest wall, 3-0 Biosyn in a deep dermal fashion, and 4-0 Biosyn in a subcuticular fashion for 3-layered closure. A Fluff dressing with Surgi-Bra was placed. She was awakened and transferred to the recovery room after extubation and tolerated the procedure well. GIANNA MILLER M.D. [id number]
== END 2018-03-05 14:20 | disposition home or self-care (01) ==
LOC: FASU 08:43
PROVIDERS: ATTEND Plastic Surgery
PROC: 0HHU0NZ Insertion of Tissue Expander into Left Breast, Open Approach (ICD-10-PCS; principal; 2018-03-05 11:00)
DX: C50.912 Malignant neoplasm of unspecified site of left female breast (principal); M95.4 Acquired deformity of chest and rib; Z90.12 Acquired absence of left breast and nipple; N64.89 Other specified disorders of breast
CPT/HCPCS: 94760

== ENCOUNTER 2019-02-11 06:03 | Day surgery (SDC) | payer OTHER ==
[2019-02-04 14:23] VITALS: BMI 29.5
[2019-02-11] MEDS ORDERED: GENTAMICIN SO4 80 MG/2 ML VIAL ONE (07:21)
[2019-02-11] MEDS ORDERED: LIDOCAINE 1%/EPI 1:100000 (20 ML MULTI DOSE VIAL) ONE ×2 (07:21→07:43)
[2019-02-11] MEDS ORDERED: ceFAZolin SODIUM 1 GM VIAL ONE (07:21)
[2019-02-11] MEDS ORDERED: EPINEPHrine/PF 1 MG/1 ML (1:1,000) AMPULE ONE (07:21)
[2019-02-11] MEDS ORDERED: LIDOCAINE HCL 1%, 10 MG/ML (20ML VIAL) ONE ×2 (07:21→07:43)
[2019-02-11] MEDS ORDERED: MIDAZOLAM HCL 2 MG/2 ML SINGLE DOSE VIAL ONE (07:45)
[2019-02-11] MEDS ORDERED: DEXAMETHASONE SOD PHOSPHATE 4 MG/1 ML VIAL ONE (07:55)
[2019-02-11] MEDS ORDERED: ONDANSETRON 4 MG/2 ML VIAL ONE ×2 (07:55→11:14)
[2019-02-11] MEDS ORDERED: PROPOFOL 20 ML ONE (07:55)
[2019-02-11] MEDS ORDERED: SUCCINYLCHOLINE CHLORIDE 200 MG/10 ML SYRINGE ONE (07:56)
[2019-02-11] MEDS ORDERED: ePHEDrine SULFATE 50 MG/1 ML AMPULE ONE (08:08)
[2019-02-11] MEDS ORDERED: VANCOMYCIN 1,000 MG VIAL (RESTRICTED TO ID ONLY) ONE (08:13)
[2019-02-11] MEDS ORDERED: LIDOCAINE 1%/EPI 1:100000 (50 ML MULTI DOSE VIAL) NR ONE (08:22)
[2019-02-11] MEDS ORDERED: oxyCODONE HCL 5 MG TABLET PO PRN ×2 (10:16)
[2019-02-11] MEDS ORDERED: PROMETHAZINE HCL 25 MG/1 ML VIAL IVPUSH PRN (10:16)
[2019-02-11] MEDS ORDERED: ONDANSETRON 4 MG/2 ML VIAL IVPUSH PRN (10:16)
--- NOTE | 2019-02-11 10:50 | OP ---
Operative Note - Note: Operative Date: 02/11/19 Pre-Operative Diagnosis: hx of left breast cancer with engraver automatic,. breast asymmetry Operation: left breast implant exchange,. right breast mastopexy. subcutaneous tissu transer to left breast Post-Operative Diagnosis: Same as Pre-op Surgeon: Feng Miller Sports Doctor: Michelle Girard Anesthesiologist/MAJOR ASSEMBLER: Karly Matamoros Anesthesia: General, MAC (LMA) Specimens Removed: left breast implant. right breast tissue Estimated Blood Loss (mls): 75 Fluid Volume Replaced (mls): 1,000 Operative Report Dictated: Yes
--- NOTE | 2019-02-11 10:51 | SURG ---
Surgery Log Hooker Note Log Hooker: Michelle Girard PA-C Date of Service: 02/11/19 Diagnosis: hx of left breast cancer with metal leaf layer, breast asymmetry Procedure: left breast implant exchange,. right breast mastopexy. subcutaneous tissu transer to left breast I was present for the entirety of the operative procedure. For further detail, please refer to operative report. Visit type - Case Type Case Type: Scheduled - Emergency Emergency Visit: No - New patient This patient is new to me today: Yes Date on this admission: 02/11/19
[2019-02-11 12:44] VITALS: PULSE 86
[2019-02-11 14:01] VITALS: BP 120/56; TEMP 98.2
--- NOTE | 2019-02-11 18:12 | OP ---
DATE OF OPERATION: 02/11/2019 SURGEON: Gianna Miller MD DIRECTOR OF ROOMS SURGEON: DURGA Whitmore PREOPERATIVE DIAGNOSES: 1. Left acquired chest wall deformity status post left mastectomy for breast cancer. 2. Personal history of breast carcinoma. 3. Asymmetry of reconstructed chest wall. 4. Right breast macromastia. POSTOPERATIVE DIAGNOSES: 1. Left acquired chest wall deformity status post left mastectomy for breast cancer. 2. Personal history of breast carcinoma. 3. Asymmetry of reconstructed chest wall. 4. Right breast macromastia. OPERATIVE PROCEDURES: 1. Left breast reconstruction utilizing other technique. 2. Left breast capsulotomy, removal, and replacement of implant. 3. Left breast delayed insertion of breast implant. 4. Right breast reduction mammoplasty. OPERATIVE INDICATION: Patient is a 73-year-old white female who has previously undergone mastectomy and failed breast reconstruction who now has an implant in place. The risks and benefits of surgical versus nonsurgical and alternatives as well as material complications of the procedure were described to the patient on multiple occasions preoperatively including today in the holding area where she was marked in a standing position for outline of the procedure with the patient's knowledge. She had all questions asked and answered. She agreed to the planned procedure. OPERATIVE PROCEDURE IN DETAIL: Patient was taken to the operating room, and after induction of general anesthesia in supine position, both arms were extended and padded. Venodyne boots were placed, and the markings, which were made in the standing position for outlined of the reduction mammoplasty in [place] pattern reduction were outlined on the right breast as well as the left breast for reconstruction with other technique. At this point, after allowing time-out and prepping and draping in the usual fashion, 1% local lidocaine anesthesia, 1:100,000 was injected into the mastectomy scar on the left breast, which was curved and irregular over the lower portion of the breast from previous mastectomy and skin breakdown issues. At this point, the mastectomy scar was incised with a No. 10 scalpel down through the skin to the subcutaneous tissue then through the subcutaneous tissue using an electrocautery down to the underlying capsule of the implant. The capsule was elevated with the lower skin flap in order to give it better vascularity and then the implant device, which was texted, was removed. This was sent for pathologic diagnosis. At this point, dissection was carried superiorly along the superior capsule performing capsulotomy and elevating the pocket superiorly in order to accept the new device. When this was temporized, attention was turned to the abdominal wall. An incision was planned in the upper abdomen for harvest of reconstructed tissue. An incision was carried down through the skin through subcutaneous tissue over the rectus muscle superiorly and laterally along the external oblique muscles and fascia. Tissue was then harvested in the usual fashion for reconstruction and transferred to the back table, washed, cleansed, and prepared. At this point, attention was then turned back to the right breast. The right breast markings, which had been made in the standing position were outlined and then circumscribed using a No. 42 nipple areolar cutter. This was carried down through the skin to the pedicle area, which was deepithelialized according to the pattern for inferior pedicle reduction. Skin flaps were then raised, and blocks of tissue were removed from the medial and lateral portions of the breasts, and skin flaps were elevated in the usual fashion for breast reduction. Hemostasis was meticulously obtained throughout the procedure with the electrocautery. Copious irrigation was carried out. The tissue was sent for pathologic diagnosis. At this point, the pedicle was placed into the central portion and tacked using 3-0 Vicryl sutures in interrupted fashion and then the skin flaps were raised and placed over this pedicle down to the new inframammary fold. The wound was closed in layers using 2-0 Vicryl suture in deep tissue, 3-0 PDS in a deep dermal fashion, and 4-0 Biosyn in a subcuticular fashion. The nipple was brought out into its new anatomic position and sutured using 3-0 PDS and 4-0 Biosyn in a circumareolar fashion. All wounds were closed in a similar fashion with suture and then Dermabond and Steri-Strip dressings were placed. Attention was turned back to the left breast. An implant was chosen for the left breast, which was a Sientra High Profile smooth round silicone gel style 107, 535-mL volume. This was placed into the new space on the left chest wall and then covered over with the capsule and subcutaneous tissue. The tissue, which had been harvested from the abdominal wall was transferred to the central portion of the left breast with other technique. After transferring the tissue, the wounds were closed in layers using 2-0 Vicryl suture on the deepest tissue and capsule, 3-0 PDS in interrupted fashion, and 4-0 Biosyn in a subcuticular fashion. This wound was also dressed with Dermabond and Steri-Strips, and the donor site was closed with interrupted running sutures and covered with Dermabond and Steri-Strips. The patient was awakened, extubated, and transferred to the recovery room in a fluff dressing with a surgery bra. She tolerated procedure well. GIANNA MILLER M.D. AKILAH/[id number]
--- NOTE | 2019-02-17 12:02 | PATH ---
Surgical Pathology Report Patient Name: STERLING CESAR Med. Rec. #: [id number] /Age/Gender: 1945 (Age: 73) / F Account: [id number] Location: [facility] Taken: 02/11/2019 Received: 02/11/2019 Reported: 02/17/2019 Physicians: Feng Miller Specimen(s) Received A: RIGHT BREAST TISSUE B: LEFT BREAST EXPLANT Clinical History History breast cancer Final Diagnosis A. BREAST TISSUE, RIGHT, EXCISION: BENIGN BREAST TISSUE. SKIN WITH NO PATHOLOGIC FINDINGS. B. EXPLANT, LEFT BREAST: IMPLANT, DESCRIBED (GROSS EXAMINATION ONLY). Electronically Signed Michelle Handy M.D. Gross Description A. Received in formalin labeled "right breast tissue," is a 69 g, 10.0 x 8.0 x 2.2 cm aggregate of multiple unoriented portions of fibroadipose tissue and moran, unremarkable skin. Sectioning reveals minimal fibrous tissue. No lesions are identified. Second Steward sections are submitted in one cassette. B. Received fresh labeled "left breast explant," is a 12.0 x 11.5 x 7.5 cm moran, intact breast implant. No soft tissue is present. No sections are submitted, gross only. 02/12/2019 saudi02/12/2019
== END 2019-02-11 13:10 | disposition home or self-care (01) ==
LOC: FASU 06:03
PROVIDERS: ATTEND Plastic Surgery
PROC: 0HPU0JZ Removal of Synthetic Substitute from Left Breast, Open Approach (ICD-10-PCS; 2019-02-11)
PROC: 0HRU0JZ Replacement of Left Breast with Synthetic Substitute, Open Approach (ICD-10-PCS; 2019-02-11)
PROC: 0H0T0ZZ Alteration of Right Breast, Open Approach (ICD-10-PCS; 2019-02-11)
PROC: 0HRU07Z Replacement of Left Breast with Autologous Tissue Substitute, Open Approach (ICD-10-PCS; principal; 2019-02-11 08:24)
PROC: 0HNU0ZZ Release Left Breast, Open Approach (ICD-10-PCS; 2019-02-11 08:24)
PROC: 0HRU0JZ Replacement of Left Breast with Synthetic Substitute, Open Approach (ICD-10-PCS; 2019-02-11 08:24)
DX: M95.4 Acquired deformity of chest and rib (principal); Z85.3 Personal history of malignant neoplasm of breast; Z90.12 Acquired absence of left breast and nipple; N65.1 Disproportion of reconstructed breast; N62 Hypertrophy of breast
CPT/HCPCS: 88300-TC; 88304-TC; 94760